=== PATIENT | male | born 1965 | race African-American/Black ===

== ENCOUNTER 2017-03-30 17:05 | Emergency (ER) | payer OTHER ==
[~2017-03-30] VITALS: Ht 175.3 cm; Wt 105.7 kg
[2017-03-30] MEDS ORDERED: NORVASC5 MG PO (17:35)
[2017-03-30] MEDS ORDERED: NAPROSYN500 MG PO (17:37)
[2017-03-30] MEDS ORDERED: DOXYCYCLINE 10100 MG PO (17:37)
[2017-03-30 18:10] VITALS: BP 176/101
== END 2017-03-30 18:22 | disposition home or self-care (01) ==
LOC: ER 17:05
DX: S39.011A Strain of muscle, fascia and tendon of abdomen, initial encounter (principal); N45.1 Epididymitis; R59.1 Generalized enlarged lymph nodes; I10 Essential (primary) hypertension; Z91.14 Patient's other noncompliance with medication regimen; F17.210 Nicotine dependence, cigarettes, uncomplicated; F10.99 Alcohol use, unspecified with unspecified alcohol-induced disorder; Z91.013 Allergy to seafood; Z98.890 Other specified postprocedural states; X50.1XXA Overexertion from prolonged static or awkward postures, initial encounter; Y93.B9 Activity, other involving muscle strengthening exercises; Y92.89 Other specified places as the place of occurrence of the external cause; Y99.8 Other external cause status